=== PATIENT | male | born 1980 ===

== ENCOUNTER 2017-09-10 09:26 | Emergency (ER) | payer OTHER ==
[2017-09-10 09:50] VITALS: RESP 18; TEMP 99
[2017-09-10 11:07] LABS: BASO % 0.6 % (0.0-2.0); EOS # 0.1 K/uL (0.0-0.7); EOS % 1.5 % (0.0-4.0); HEMOGLOBIN 15.2 g/dL (12.0-18.0); MEAN CELL VOLUME 86.4 fL (80.0-94.0); MEAN CORPUSCULAR HEMOGLOBIN 29.2 pg (27.0-31.0); MEAN CORPUSCULAR HGB CONC 33.8 g/dL (33.0-37.0); MEAN PLATELET VOLUME 8.2 fL (7.2-11.7); MONO # 0.5 K/uL (0.0-0.8); MONO % 8.3 % (0.0-10.0); NEUT # 3.7 K/uL (1.8-7.0); NEUT % 57.6 % (50.0-75.0); NRBC % 0.1 % (0.0-2.0); RBC 5.21 Mil/uL (4.40-5.90); RED CELL DISTRIBUTION WIDTH 12.5 % (11.5-14.5); WHITE BLOOD COUNT 6.4 K/uL (4.8-10.8)
--- NOTE | 2017-09-10 11:16 | RAD ---
HISTORY: SOB COMPARISON: None available. TECHNIQUE: Chest, one view. FINDINGS: Examination limited by habitus and hypoinflation. LUNGS: No focal consolidation. Please note that chest x-ray has limited sensitivity for the detection of pulmonary masses. PLEURA: No significant pleural effusion identified. No definite pneumothorax . CARDIOVASCULAR: Heart size appears within normal limits. OSSEOUS STRUCTURES: No acute osseous abnormality identified. VISUALIZED UPPER ABDOMEN: Unremarkable. OTHER FINDINGS: None. IMPRESSION: No focal consolidation, significant pleural effusion, or definite pneumothorax identified.
--- NOTE | 2017-09-10 11:17 | C.PDOC ---
History Of Present Illness 37 y/o male with history of Gastritis and Hemorrhoids presents to ED with complaints of left sided abdominal pain for "couple of days" and constipation. Patient states yesterday he had bowel movement with bright red blood in stool after straining. Notes he has been applying hemorrhoid cream to area with no improvement. Patient admits to constipation and has been taking Nexium for gastritis. Patient denies fever, vomiting, urinary symptoms, testicular pain, chest pain, sob, dizziness or any other complaints at this time. Pt notes he has a h/o HTN and has not taken his medication in 3 days. Time Seen by Provider: 09/10/17 10:19 Chief Complaint (Nursing): Abdominal Pain History Per: Patient, Family (brother) History/Exam Limitations: no limitations Onset/Duration Of Symptoms: Days Current Symptoms Are (Timing): Still Present Past Medical History Reviewed: Historical Data, Nursing Documentation, Vital Signs Vital Signs: Last Vital Signs Temp 99.0 F 09/10/17 09:46 Pulse 74 09/10/17 14:36 Resp 18 09/10/17 14:36 BP 134/70 09/10/17 14:36 Pulse Ox 98 09/10/17 14:36 - Medical History PMH: Gastritis, HTN Surgical History: No Surg Hx Family History: States: No Known Family Hx - Social History Hx Alcohol Use: No Hx Substance Use: No - Immunization History Hx Tetanus Toxoid Vaccination: Yes Hx Influenza Vaccination: No Hx Pneumococcal Vaccination: No Review Of Systems Constitutional: Negative for: Fever, Chills Gastrointestinal: Positive for: Abdominal Pain, Constipation, Hematochezia, Rectal Pain. 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 COMPARISON: None available. TECHNIQUE: Chest , one view. FINDINGS: Examination limited by habitus and hypoinflation. LUNGS : No focal consolidation. Please note that chest x-ray has limited sensitivity for the detection of pulmonary masses. PLEURA: No significant pleural effusion identified. No definite pneumothorax . CARDIOVASCULAR: Heart size appears within normal limits. OSSEOUS STRUCTURES: No acute osseous abnormality identified. VISUALIZED UPPER ABDOMEN: Unremarkable. OTHER FINDINGS: None. IMPRESSION: No focal consolidation, significant pleural effusion, or definite pneumothorax identified. Progress Note: CT abd/Pelvis, Blood work, UA ordered. Toradol and Pepcid Administered. On re-evaluation, patient is resting comfortably, in no distress , abdomen is soft, no rebound or guarding, and is tolerating PO. Patient has no signs or symptoms to suggest surgical pathology. Patient was advised to follow up without fail with physician/clinic or to return to the ER for reevaluation in 1-2 days. Pt and brother were given results of CT scan and instructed clinic follow up. Case discussed with Dr Pavon who evlauated results and agreed upon plan and discharge. Disposition - Disposition Referrals: [facility] at [facility] [Outside] [facility] [Outside] Mckinley Jackson MD [Staff Provider] - Disposition: HOME/ ROUTINE Disposition Time: 14:22 Condition: STABLE Additional Instructions: Vaya a muñoz mdico o la clnica en 1-3 berry sin falta, para mas evaluacin. [place] los medicamentos vahid indicado. Volver a la ekaterina de emergencia en cualquier momento si los sntomas persisten o empeoran. Prescriptions: Polyethylene Glycol 3350 [Miralax] 17 gm PO DAILY #85 gm Instructions: Diverticulosis (ED), Diverticulosis Diet (ED) Forms: [employer] (Danish) Print Language: MONEGASQUE - Clinical Impression Clinical Impression: Diverticulosis - PA / SCIENTIFIC DIRECTOR / Resident Statement MD/DO has reviewed & agrees with the documentation as recorded. - Scribe Statement The provider has reviewed the documentation as recorded by the Scribe Helder Palafox All medical record entries made by the Dukeibzara were at my direction and personally dictated by me. I have reviewed the chart and agree that the record accurately reflects my personal performance of the history, physical exam, medical decision making, and the department course for this patient. I have also personally directed, reviewed, and agree with the discharge instructions and disposition.
[2017-09-10 11:35] LABS: ALB/GLOB RATIO 1.3 (1.0-2.1); ALBUMIN 4.4 g/dL (3.5-5.0); ALT/SGPT 35 U/L (21-72); AST/SGOT 32 U/L (17-59); BLOOD UREA NITROGEN 13 mg/dL (9-20); CALCIUM 9.4 mg/dl (8.6-10.4); GFR AFRICAN-AMERICAN > 60; GFR NON-AFRICAN AMERICAN > 60; LIPASE 348 U/L (23-300)
[2017-09-10 11:51] LABS: SQUAMOUS EPITHIAL < 1 /hpf (0-5); URINE BILIRUBIN NEGATIVE (NEGATIVE); URINE BLOOD NEGATIVE (NEGATIVE); URINE CLARITY Clear (Clear); URINE COLOR Yellow (YELLOW); URINE GLUCOSE (UA) NORMAL (Normal); URINE LEUKOCYTE ESTERASE NEG Leu/uL (Negative); URINE NITRATE NEGATIVE (NEGATIVE); URINE PROTEIN NEGATIVE (NEGATIVE); URINE UROBILINOGEN NORMAL mg/dL (0.2-1.0)
[2017-09-10] MEDS ORDERED: Iodixanol 320 mg/ml 150 ml Bottle IV ONE (13:06)
--- NOTE | 2017-09-10 14:09 | CT ---
PROCEDURE: CT Abdomen and Pelvis with contrast HISTORY: pain COMPARISON: None. TECHNIQUE: Contrast dose: 100 mL Visipaque 320 Radiation dose: Total exam DLP = 1315.62 mGy-cm. This CT exam was performed using one or more of the following dose reduction techniques: Automated exposure control, adjustment of the mA and/or kV according to patient size, and/or use of iterative reconstruction technique. FINDINGS: LOWER THORAX: Unremarkable. LIVER: Unremarkable. No gross lesion or ductal dilatation. GALLBLADDER AND BILE DUCTS: Unremarkable. PANCREAS: Unremarkable. No gross lesion or ductal dilatation. SPLEEN: Unremarkable. ADRENALS: Unremarkable. No mass. KIDNEYS AND URETERS: Nonspecific 10 mm right lower pole low-density renal mass. Nonspecific 1.5 cm mid left renal mass measuring -2 Hounsfield units, consistent with cyst. Nonspecific 1.3 cm mid left renal mass, measuring approximately 50 Hounsfield units. Recommend correlation with renal ultrasound examination on a nonemergent basis. No calculus or hydronephrosis. VASCULATURE: Unremarkable. No aortic aneurysm. BOWEL: Wolfe colonic diverticulosis without evidence of diverticulitis. No bowel obstruction. No other abnormal bowel loops. APPENDIX: Normal appendix. PERITONEUM: Unremarkable. No free fluid. No free air. LYMPH NODES: Unremarkable. No enlarged lymph nodes. BLADDER: Suboptimally distended. Grossly normal. REPRODUCTIVE: Normal prostate BONES: No acute fracture. OTHER FINDINGS: None. IMPRESSION: Wolfe colonic diverticulosis without evidence of diverticulitis. Bilateral small nonspecific rounded renal masses, likely cysts. Recommend correlation with renal ultrasound examination on a nonemergent basis. No additional abnormality.
[2017-09-10 14:37] VITALS: BP 134/70; PULSE 74
[2017-09-10 17:51] VITALS: O2SAT 100
== END 2017-09-10 14:37 | disposition home or self-care (01) ==
LOC: C.ER 09:26
DX: K57.90 Diverticulosis of intestine, part unspecified, without perforation or abscess without bleeding (principal)
CPT/HCPCS: 71045; 74177; 80053; 81001; 83690; 85025; 96374; 96375; 99284; G0328; J1885; Q9967

== ENCOUNTER 2018-05-22 19:06 | Emergency (ER) | payer OTHER ==
--- NOTE | 2018-05-22 20:34 | C.PDOC ---
Addendum entered and electronically signed by Ifrah Ba PA 05/23/18 18:50: Addendum Addendum: 05/23/18 18:43 ct leg from last reviewed with additional new findings; called podiatry resident Dr Gifford to review. Pod resident reviewed updated ct results with Dr Nunez, podiatry attending, and requested that pt be started on Clindamycin and cipro. attempted to call patient, no answer. called Glenn Devlin, pt's brother in law and explained situation. He will contact pt to let him know to get prescriptions and to follow up with podiatry on Friday as scheduled. Prescriptions called into [facility]. Podiatry resident notified that rx called in. Addendum entered and electronically signed by Amber Ware PA-C 05/23/18 03:28: Addendum Addendum: 05/23/18 03:26 Patient was evaluated by Podiatry resident, CT was ordered as per Podiatry request. Patient was splinted by Podiatry resident and was d/c home. Original Note: History Of Present Illness 37 y/o male presents to ED for evaluation of right foot swelling for the last 2- 3 days. He also complains of painful mass above the right ankle. Pt states he was seen by yarrow gatherer and was given referral for Xray on 05/25/18 but states pain was severe which prompted him to visit ED today. Otherwise, denies change in sensation, weakness, numbness, fever, chills, redness, or any other associated symptoms at this time. Time Seen by Provider: 05/22/18 19:26 Chief Complaint (Nursing): Lower Extremity Problem/Injury History Per: Patient History/Exam Limitations: no limitations Onset/Duration Of Symptoms: Days Current Symptoms Are (Timing): Still Present Recent travel outside of the [place]: No Additional History Per: Patient Past Medical History Reviewed: Historical Data, Nursing Documentation, Vital Signs Vital Signs: Last Vital Signs Temp 98.8 F 05/22/18 19:19 Pulse 105 H 05/22/18 19:19 Resp 18 05/22/18 19:19 BP 142/78 05/22/18 19:19 Pulse Ox 97 05/22/18 19:19 - Medical History PMH: Gastritis, HTN Denies: Chronic Kidney Disease Family History: States: Unknown Family Hx - Social History Hx Alcohol Use: No Hx Substance Use: No - Immunization History Hx Tetanus Toxoid Vaccination: Yes Hx Influenza Vaccination: No Hx Pneumococcal Vaccination: No Review Of Systems Except As Marked, All Systems Reviewed And Found Negative. Constitutional: Negative for: Fever, Chills Musculoskeletal: Positive for: Foot Pain Skin: Negative for: Rash, Lesions, Bruising Neurological: Negative for: Weakness, Numbness Physical Exam - Physical Exam Appears: Non-toxic, No Acute Distress Skin: Warm, Dry, Other (tender mass above the right lateral malleolus) Head: Atraumatic, Normacephalic Eye(s): bilateral: Normal Inspection Extremity: Normal ROM (FROM of right foot), Tenderness (tenderness to dorsum aspect of right foot), No Calf Tenderness, Capillary Refill (less than 2 seconds), No Deformity, Swelling (swelling to dorsum of right foot) Pulses: Left Dorsalis Pedis: Normal, Right Dorsalis Pedis: Normal Neurological/Psych: Oriented x3, Normal Speech, Normal Motor, Normal Sensation ED Course And Treatment - Laboratory Results Result Diagrams: 05/22/18 21:49 05/22/18 21:49 O2 Sat by Pulse Oximetry: 97 (RA) Pulse Ox Interpretation: Normal - Other Rad Right foot/ankle Xray X-Ray: Interpreted by Me, Viewed By Me Interpretation: Soft tissue swelling. No acute fracture or dislocation. No bony lesions. - CT Scan/US CT lower leg Other Rad Studies (CT/US): Read By Radiologist, Radiology Report Reviewed CT/US Interpretation: Name:EVY DEXTER Exam Date:May 22, 2018 10:26:08 PM EDT. Modality Type:CT. Description:CT - LOWER LEG. Gender:M Laterality:Not applicable. :78 Referring Physician:Amber Ware). CT of the left lower leg with contrast. Clinical statement: possible abscess. Technique: Multiple axial CT images were obtained with 5 mm cuts through the left lower leg after ministration of non- ionic intravenous contrast. Coronal and sagittal reconstructions were also obtained. DLP 605.29. No comparison is available. Findings: The osseous structures do not demonstrate any fractures or dislocations. The superficial soft tissues are unremarkable. The joint spaces are well-maintained.. The vascular structures demonstrate normal caliber and contour. No abnormal enhancing masses are seen. Impression: 1. No enhancing mass or abscess identified. 2. No acute osseous abnormality. . Electronically signed on May 22, 2018 11:24:36 PM EDT by: Martin Stark M.D., MARGE Certified By ABR & CBCCT. Fellowship Trained MRI and CT Specialist. Progress Note: Right foot/ankle/tibia fibula Xray ordered and reviewed. Podiatry resident will evaluate patient at bedside. Disposition - Disposition Referrals: [facility] at [facility] [Outside] Disposition: HOME/ ROUTINE Disposition Time: 23:41 Condition: STABLE Additional Instructions: Follow up in Podiatry Clinic on 05/25/18. Return to ED if feel worse. Prescriptions: Ibuprofen [Motrin Tab] 600 mg PO Q8 #30 tab oxyCODONE/Acetaminophen [Percocet 5/325 mg Tab] 1 tab PO QID PRN #15 tab PRN Reason: Pain Instructions: Muscle and Bone Pain (DC) Forms: [employer] (Italian) Print Language: INDIAN - Clinical Impression Clinical Impression: Leg pain - PA / DECK CADET / Resident Statement MD/DO has reviewed & agrees with the documentation as recorded. - Scribe Statement The provider has reviewed the documentation as recorded by the Dukeibe Navya Canales All medical record entries made by the Luz Maria were at my direction and personally dictated by me. I have reviewed the chart and agree that the record accurately reflects my personal performance of the history, physical exam, medical decision making, and the department course for this patient. I have also personally directed, reviewed, and agree with the discharge instructions and disposition.
[2018-05-22] MEDS ORDERED: Oxycodone/Acetaminophen 5/325 mg Tab PO STA (21:35)
[2018-05-22] MEDS ORDERED: Sodium Chloride 0.9% 1,000 ML IV STA (21:41)
[2018-05-22] MEDS ORDERED: Oxycodone/Acetaminophen 5/325 mg Tab ONE (21:43)
--- NOTE | 2018-05-22 21:48 | CP.PCM.CON ---
Addendum entered and electronically signed by King Florian DPM 05/23/18 18:17: I was contacted by [facility] ED today informing me that more detailed reading of the right LE CT was done overnight. R LE CT with contrast New report reviewed; - Reticulation and edema present within the anterior lateral soft tissues at the level of the tibia and fibula. And also at the level of posterior inferior hindfoot. Which might represents acu te inflammatory or infectious process. - Mild fatty atrophy of the medial head of gastrocnemious and moderate fattly atrphy of the Soleus muscle belly. - Small supratalar joint effusion. - Some productive or osseous changes at the bases of the 3rd and 4th metatarsal bones and also lateral cuniform. It might represents inflammatory or infectious process. According to the new reading. Dr Nunez was contacted and discussed changes in the original plan. Dr. Nunez recommends Covering the patient with Clindamycin 600 mg tab and Ciprofloxacin 500 mg tablets for 10 days. ED was contacted and informed with the new plan. ED will contact the patient to provide him with Abx prescription. Patient will be provided with MRI script upon following up in the podiatry clinic this coming Friday (05/25). Patient will follow up in the podiatry clinic with Dr. Nunez. Addendum entered and electronically signed by King Florian DPM 05/22/18 23:52: D-Dimer < 200 Original Note: History of Present Illness - History of Present Illness History of Present Illness: Right LE focused exam: 37 y/o M patient with PMH of HTN seen and evaluated in the ED for pain and swelling in his right LE. patient states that he is having sever pain in his right foot and ankle started 3 days ago. He states that the pain is 10/10 and he triem motrin for the pain but it didn't help him. Patient states that he was at the podiatry clinic last friday where he was seen by Enrique Haile and provided with x-ray script to do it before the next visit. Patient states that 3 months ago he had fluid collection around his right knee and LE and he had to come to the ED where the fluid was tapped. Patient states that 3 months ago he started to note a mass in his right LE. He states that the mass was growing. He states that the mass is painful. He denies any other pedal complaint at this time. He denies any recent F/N/V/C or SOB. PMH: HTN PSH: None Allergies: NKDA. Social Hx: Denies smoking, EtOH use or illicit drug use. Review of Systems - Review of Systems Review of Systems: As per HPI Past Patient History - Infectious Disease Hx of Infectious Diseases: None - Past Social History Smoking Status: Never Smoked - CARDIAC Hx Hypertension: Yes - PULMONARY Hx Respiratory Disorders: No - NEUROLOGICAL Hx Neurological Disorder: No - HEENT Hx HEENT Problems: No - RENAL Hx Chronic Kidney Disease: No - ENDOCRINE/METABOLIC Hx Endocrine Disorders: No - HEMATOLOGICAL/ONCOLOGICAL Hx Blood Disorders: No - INTEGUMENTARY Hx Dermatological Problems: No - MUSCULOSKELETAL/RHEUMATOLOGICAL Hx Musculoskeletal Disorders: No - GASTROINTESTINAL Hx Gastritis: Yes - GENITOURINARY/GYNECOLOGICAL Hx Genitourinary Disorders: No - PSYCHIATRIC Hx Substance Use: No - SURGICAL HISTORY Hx Surgeries: No - ANESTHESIA Hx Anesthesia: No Meds Home Medications: Home Medication List Medication Instructions Recorded Confirmed Type Ibuprofen [Motrin Tab] 600 mg PO Q8 #30 tab 05/22/18 Rx oxyCODONE/Acetaminophen [Percocet 1 tab PO QID PRN #15 tab 05/22/18 Rx 5/325 mg Tab] Allergies/Adverse Reactions: Allergies Allergy/AdvReac Type Severity Reaction Status Date / Time No Known Allergies Allergy Verified 09/10/17 09:50 Physical Exam - Constitutional Appears: Well, Non-toxic, No Acute Distress - Head Exam Head Exam: ATRAUMATIC, NORMOCEPHALIC - Extremities Exam Additional comments: Right LE focused exam: Vasc: DP/PT 2/4, Cap refill < 3 sec to all digits. Temp gradient warm to cool from proximal to distal. sever non pitting edema extending from the foot up to the tibial tuberosity. Neuro: Gross and protective sensations are intact. Derm: No open lesions, No clinical signs of active infection. Soft tissue mass noted on the lower lateral aspect of the left leg. the mass is oval in shap with soft consistency and smooth edges. MSK: Pain on palpating the mass. Pain on palpating the dorsum of the foot. Pain with ankle ROM. Muscle power intact 5/5 in all groups. - Neurological Exam Neurological exam: Alert, Oriented x3 - Psychiatric Exam Psychiatric exam: Normal Affect, Normal Mood Results - Vital Signs Recent Vital Signs: Last Vital Signs Temp 98.8 F 05/22/18 19:19 Pulse 105 H 05/22/18 19:19 Resp 18 05/22/18 19:19 BP 142/78 05/22/18 19:19 Pulse Ox 97 05/22/18 20:55 - Labs Result Diagrams: 05/22/18 21:49 05/22/18 21:49 Assessment & Plan - Assessment and Plan (Free Text) Assessment: 37 y/o M patient seen and evaluated in the ED for pain and swelling n his right LE Plan: Patient seen and evaluated in the ED Plan discussed in details with attending Dr. Nunez. Labs, Charts and vitals reviewed; Afebrile. WBCs 11.1 X-ray Right foot reviewed; Soft tissue swelling, no osseous anomalies X-ray Right ankle reviewed; Soft tissue swelling, no osseous anomalies X-ray Right Tib-fibula reviewed; Soft tissue swelling, Soft tissue mass right lateral lower leg, no osseous anomalies CT with contrast RLE reveals No mass or abscess or osseous abnormality Pain medication ordered for the patient by the ED doctor. Patient instructed to use the pain meds prescribed to him by the ED doctor in case of pain. Discussed with the patient that he probably will need an MRI to determine the nature of this mass. Patient will be provided with a script of RLE MRI when he comes to the clinic. 2 layers modified Gonsalves compression applied to the patient RLE. Patient educated RICE protocol Patient instructed to maintain NWB to his RLE and to ambulate using crutches. Patient expressed verbal understanding. Patient will follow up in the podiatry clinic with Dr. Nunez. - Date & Time Date: 05/22/18 Time: 21:55
[2018-05-22 21:52] LABS: BASO # 0.1 K/uL (0.0-0.2); BASO % 0.6 % (0.0-2.0); EOS # 0.1 K/uL (0.0-0.7); EOS % 0.9 % (0.0-4.0); HEMOGLOBIN 13.5 g/dL (12.0-18.0); LYMPH % 17.7 % (20.0-40.0); MEAN CORPUSCULAR HEMOGLOBIN 28.3 pg (27.0-31.0); MEAN CORPUSCULAR HGB CONC 33.1 g/dL (33.0-37.0); MEAN PLATELET VOLUME 8.2 fL (7.2-11.7); MONO # 0.8 K/uL (0.0-0.8); MONO % 7.4 % (0.0-10.0); NEUT # 8.1 K/uL (1.8-7.0); NEUT % 73.4 % (50.0-75.0); NRBC % 0.1 % (0.0-2.0); RBC 4.76 Mil/uL (4.40-5.90); RED CELL DISTRIBUTION WIDTH 12.3 % (11.5-14.5)
[2018-05-22] MEDS ORDERED: Iodixanol 320 MG/ML 100 ML BOTTLE IV ONE (21:52)
[2018-05-22 21:59] LABS: MEAN CELL VOLUME 85.6 fL (80.0-94.0); WHITE BLOOD COUNT 11.1 K/uL (4.8-10.8)
[2018-05-22] MEDS ORDERED: Sodium Chloride 0.9% 1,000 ML ONE (22:03)
[2018-05-22 22:06] LABS: ALB/GLOB RATIO 1.4 (1.0-2.1); ALBUMIN 4.4 g/dL (3.5-5.0); ALT/SGPT 29 U/L (21-72); AST/SGOT 20 U/L (17-59); BLOOD UREA NITROGEN 17 mg/dL (9-20); CALCIUM 9.6 mg/dl (8.6-10.4); GFR NON-AFRICAN AMERICAN > 60
[2018-05-22 22:09] VITALS: BP 123/73; PULSE 88; RESP 20; TEMP 99.4
[2018-05-22 22:31] LABS: INR 1.1; PARTIAL THROMBOPLASTIN TIME 33 SECONDS (21-34); PROTHROMBIN TIME 12.1 SECONDS (9.7-12.2)
[2018-05-22 22:42] LABS: D DIMER < 200 ng/mlDDU (0-243)
[2018-05-22 23:26] VITALS: O2SAT 97
--- NOTE | 2018-05-23 07:47 | RAD ---
Right tibia and fibula HISTORY: Pain and swelling. COMPARISON: None available. FINDINGS: Prominent soft tissue calcifications within the anterior soft tissues. Reticulation and edema within the soft tissues. No evidence for acute displaced fracture or dislocation. IMPRESSION: Reticulation and edema within the soft tissues. If pain persists, consider correlation with MRI.
--- NOTE | 2018-05-23 11:58 | CT ---
CT right lower extremity HISTORY: Soft tissue mass. COMPARISON: None available. TECHNIQUE: Multiple contiguous axial images were performed through the right lower extremity including the femur, tibia and fibula, and foot without the use of intravenous contrast. Subsequently, sagittal and coronal reformatted images were obtained. This CT exam was performed using one or more of the following dose reduction techniques: Automated exposure control, adjustment of the mA and/or kV according to patient size, and/or use of iterative reconstruction technique. Findings: Reticulation and edema seen within the anterior lateral soft tissues at the level of the tibia and fibula, nonspecific possibly representing some acute infectious and or inflammatory changes. Additional reticulation and edema within the soft tissues at the level the posterior inferior hindfoot also suggestive for possible acute infectious and or inflammatory changes. Mild fatty atrophy of the medial head of the gastrocnemius muscle belly. Moderate fatty atrophy of the soleus muscle belly. Clinical correlation. Evaluation of the osseous structures demonstrates some productive change and or subchondral cystic change at the bases of the 3rd and 4th metatarsal bones as well as the corresponding lateral cuneiform bone. This is of uncertain clinical etiology and may be the sequelae of osteochondral/degenerative change. Additional etiologies such as acute inflammatory and or infectious changes at this level cannot be excluded. Clinical correlation. Hallux valgus deformity. Bipartite medial sesamoid bone. Calcifications noted within the soft tissues at the level the anterior tibia. Small suprapatellar joint effusion. Plantar and dorsal calcaneal spurring. Impression: 1. Reticulation and edema seen within the anterior lateral soft tissues at the level of the tibia and fibula, nonspecific possibly representing some acute infectious and or inflammatory changes. Additional reticulation and edema within the soft tissues at the level the posterior inferior hindfoot also suggestive for possible acute infectious and or inflammatory changes. 2. Mild fatty atrophy of the medial head of the gastrocnemius muscle belly. Moderate fatty atrophy of the soleus muscle belly. Clinical correlation. 3. Small suprapatellar joint effusion. 4. Calcifications noted within the soft tissues at the level the anterior tibia. 5. Evaluation of the osseous structures demonstrates some productive change and or subchondral cystic change at the bases of the 3rd and 4th metatarsal bones as well as the corresponding lateral cuneiform bone. This is of uncertain clinical etiology and may be the sequelae of osteochondral/degenerative change. Additional etiologies such as acute inflammatory and or infectious changes at this level cannot be excluded. Clinical correlation. 6. Hallux valgus deformity. Bipartite medial sesamoid bone. 7. Plantar and dorsal calcaneal spurring. A preliminary report was generated at 11:24 p.m. on 05/22/[address] Martin Stark from [facility].
--- NOTE | 2018-05-23 13:47 | RAD ---
Date of service: 05/22/2018 PROCEDURE: Right Foot Radiographs. Three views HISTORY: pain/swelling COMPARISON: None. FINDINGS: BONES: Bony productive change at the bases of the 3rd and 4th metatarsal bones as well as at the distal pole of the lateral cuneiform bone with some subchondral cyst formation. This is of uncertain clinical etiology and may represent the sequelae of degenerative changes; however, acute infectious and or inflammatory changes cannot be excluded. Clinical correlation. JOINTS: Mild hallux valgus deformity. Bipartite medial sesamoid bone SOFT TISSUES: Diffuse soft tissue swelling. OTHER FINDINGS: Plantar and dorsal calcaneal spurring. Degenerative changes with productive change at the dorsal aspect of the midfoot. IMPRESSION: 1. Bony productive change at the bases of the 3rd and 4th metatarsal bones as well as at the distal pole of the lateral cuneiform bone with some subchondral cyst formation. This is of uncertain clinical etiology and may represent the sequelae of degenerative changes; however, acute infectious and or inflammatory changes cannot be excluded. Clinical correlation. 2. Mild hallux valgus deformity. Bipartite medial sesamoid bone. 3. Diffuse soft tissue swelling. 4. Plantar and dorsal calcaneal spurring. Degenerative changes with productive change at the dorsal aspect of the midfoot. If pain persists, consider correlation with MRI.
--- NOTE | 2018-05-23 17:12 | RAD ---
Right ankle three views HISTORY: Pain and swelling. COMPARISON: None available. FINDINGS: Please see separate report for evaluation of the CT of the right ankle. Soft tissue swelling throughout the visualized subcutaneous soft tissues. Soft tissue calcifications anterior to the tibia. Plantar and dorsal calcaneal spurring. Productive change and or degenerative changes at the level of the bases of the 3rd and 4th metatarsal bones, nonspecific. This may be the sequelae of degenerative change however underlying acute inflammatory and or infectious changes cannot be excluded. Clinical correlation. Ankle mortise is maintained. Talar dome is intact. Productive change at the dorsal aspect of the midfoot. IMPRESSION: Please see separate report for evaluation of the CT of the right ankle. Soft tissue swelling throughout the visualized subcutaneous soft tissues. Soft tissue calcifications anterior to the tibia. Plantar and dorsal calcaneal spurring. Productive change and or degenerative changes at the level of the bases of the 3rd and 4th metatarsal bones, nonspecific. This may be the sequelae of degenerative change however underlying acute inflammatory and or infectious changes cannot be excluded. Clinical correlation. Productive change at the dorsal aspect of the midfoot. If pain persists, consider MRI.
== END 2018-05-23 00:14 | disposition home or self-care (01) ==
LOC: C.ER 19:06
DX: M79.604 Pain in right leg (principal); I10 Essential (primary) hypertension
CPT/HCPCS: 73590; 73610; 73630; 73701; 80053; 85025; 85378; 85610; 85730; 96360; 99284; J7030; Q9967

== ENCOUNTER 2018-06-05 07:46 | Day surgery (SDC) | payer OTHER ==
[2018-06-02 09:46] VITALS: BMI 47.4
[~2018-06-05 07:46] MED LIST: Bupivacaine 0.25% 20 ML INJ IJ ONE; Bupivacaine HCl 0.5% PF (30 ml) Inj ONE; Lidocaine 2% MPF (5 ml) Inj ONE; ceFAZolin 1 gm FROZEN Premix 0 GM/0 ML ML IVPB ONE
[2018-06-05] MEDS ORDERED: Propofol 10 mg/ml Inj (20 ML) ONE ×2 (09:32→09:54)
[2018-06-05] MEDS ORDERED: Midazolam 2 MG/2 ML VIAL ONE (09:32)
[2018-06-05] MEDS ORDERED: Lidocaine Hydrochloride 5 ML INJ ONE (09:37)
[2018-06-05] MEDS ORDERED: Bupivacaine 0.25% 20 ML INJ IJ ONE (10:08)
[2018-06-05] MEDS ORDERED: Morphine 4 MG/ML VIAL ONE (10:12)
[2018-06-05] MEDS ORDERED: HYDROmorphone 0.5 mg/0.5 ml ISec IVP PRN (10:19)
--- NOTE | 2018-06-05 10:19 | PCM.SURG1 ---
Surgeon's Initial Post Op Note - Surgeon's Notes Surgeon: Dr. Enrique MCNULTYM [employer] Specialist: Dr. Israel MCCLURE PGY-2 Type of Anesthesia: IV Sedation, Local Anesthesia Administered By: Dr. 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 2) 3rd metatarsal base bone,right foot- wound culture. 3) 4th metatarsal bsae bone, right foot- pathology. 4) 4th metatarsal base bone, right foot- wound culture Estimated Blood Loss: EBL {In ML}: 1 Blood Products Given: N/A Drains Used: No Drains Post-Op Condition: Good Date of Surgery/Procedure: 06/05/18 Time of Surgery/Procedure: 09:20
[2018-06-05] MEDS ORDERED: Oxycodone/Acetaminophen 5/325 mg Tab PO PRN ×2 (10:21)
[2018-06-05 11:40] VITALS: RESP 16; O2SAT 100
[2018-06-05 12:53] VITALS: BP 114/63; PULSE 90; TEMP 16
[2018-06-06] MEDS ORDERED: Pantoprazole 40 mg EC Tab PO SCH (10:00)
--- NOTE | 2018-06-07 19:22 | PCM.OP ---
Operative Report - Operative Report Date of Surgery/Procedure: 06/05/18 Time of Surgery/Procedure: 09:15 Surgeon: Dr. Cortney Nunez DPM Travel Attendants: Dr. Amish Wood DPM PGY-2 Anesthesia/Sedation: Dr. Reinier MD IV sedation with local anesthesia Pre-Operative Diagnosis: 1. right foot 3rd metatarsal base osteomyelitis. 2. right foot 4th base metatarsal osteomyelitis Post-Operative Diagnosis: same Indication for Surgery: Indications: The patient is a 37 year-old male with the above diagnoses. Patient has pain and swelling to the right lower extremity for about 1 month. Patient denies any trauma or injuries to the right lower extremity and foot. Patient recent underwent MRI for right lower extremity and MRI reports shows possible osteomyelitis of 3rd and 4th metatarsal base. The patient signed the consent after careful explanation of risks, benefits, complication and alternatives for surgical procedure. No guarantees were given nor implied. NPO status was confirmed prior to taking patient to the OR. Operative Findings: see dictation below Procedure/Operation Description: Preparation: The patient was brought in to the operating room and placed on the operating room table in a supine position. Timeout was performed for identification of the correct patient and procedure. After IV sedation is administered, local anesthesia of 20 cc of 1:1 of 1% lidocaine plain and .5% Marcaine plain in V block fashion to the right foot. Right lower extremity was then prepped and draped in normal sterile manner and the procedure began. Procedure 1: Bone biopsy 3rd metatarsal base, right footAttention was directed to the lateral right foot at the location of the 3rd metatarsal base. Under fluoroscopy guidance, location of the 3rd metatarsal base was identified with a freer and marked using a skin marker outlining the entire 3rd metatarsal base. Using a #15 blade, a stab incision was made on the dorsum aspect of the 3rd metatarsal base. Next the Jamshidi needle was placed through the incision, and using firm pressure, the needle was advance into the 3rd metatarsal base while rotating the needle the needle 45 degrees in an alternating clockwise/counterclockwise. Once the entrance into the marrow cavity, the stylet was rotated 90 degrees counter-clockwise, and the stylet was pulled out of the handle. The bone biopsy of the 3rd metatarsal base was obtain and was passed off the operative field and sent for wound culture. Next Using a #15 blade, a stab incision was made on the dorsum aspect of the 3rd metatarsal base more proximally. Next the Jamshidi needle was placed through the incision, and using firm pressure, the needle was advance into the 3rd metatarsal base while rotating the needle the needle 45 degrees in an alternating clockwise/counterclockwise. Once the entrance into the marrow cavity, the stylet was rotated 90 degrees counter-clockwise, and the stylet was pulled out of the handle. The bone biopsy of the 3rd metatarsal base was obtain and was passed off the operative field and sent to pathology.Procedure 2: Bone biopsy 4th metatarsal base, right footAttention was directed to the lateral right foot at the location of the 4th metatarsal base. Under fluoroscopy guidance, location of the 4th metatarsal base was identified with a freer and marked using a skin marker outlining the entire 4th metatarsal base. Using a #15 blade, a stab incision was made on the dorsum aspect of the 4thmetatarsal base. Next the Jamshidi needle was placed through the incision, and using firm pressure, the needle was advance into the 4th metatarsal base while rotating the needle the needle 45 degrees in an alternating clockwise/counterclockwise. Once the entrance into the marrow cavity, the stylet was rotated 90 degrees counter- clockwise, and the stylet was pulled out of the handle. The bone biopsy of the 4th metatarsal base was obtain and was passed off the operative field and sent for wound culture. Next Using a #15 blade, a stab incision was made on the dorsum aspect of the 4th metatarsal base more proximally. Next the Jamshidi needle was placed through the incision, and using firm pressure, the needle was advance into the 4th metatarsal base while rotating the needle the needle 45 degrees in an alternating clockwise/counterclockwise. Once the entrance into the marrow cavity, the stylet was rotated 90 degrees counter-clockwise, and the stylet was pulled out of the handle. The bone biopsy of the 4th metatarsal base was obtain and was passed off the operative field and sent to pathology.The surgical incisions were cleansed with copious amounts of saline solution. Skin was closed and reapproximated using #3-0 monocryl. Surgical incisions were then dressed with adaptic, dsd, kerlix and TITO. Estimated Blood Loss: 1 Complications: none Discharge & Condition: Postoperative Condition: The patient tolerated the anesthesia and procedure well and was escorted to the recovery room with vital signs stable and neurovascular status intact to right lower extremity. Patient will follow up with Dr. Nunez in office within 1 week.
== END 2018-06-05 12:43 | disposition home or self-care (01) ==
LOC: C.SDS 07:46
PROVIDERS: ATTEND Podiatrist Foot & Ankle Surgery
DX: M86.8X7 Other osteomyelitis, ankle and foot (principal)
CPT/HCPCS: 20240; 87070; 88305; 97116; 97161; G8978; G8979; G8980; J0131; J1885; J2250; J2270; J2704; J3010

== ENCOUNTER 2018-06-08 13:09 | Emergency (ER) | payer OTHER ==
[2018-06-08 13:09] VITALS: BMI 47.4
[2018-06-08 13:49] VITALS: BP 120/77; PULSE 109; RESP 20; TEMP 100.5; O2SAT 96
--- NOTE | 2018-06-08 14:18 | C.PDOC ---
History Of Present Illness 37 year old male presents to the ED after being referred by Dr. Nunez in clinic for knee evaluation. Patient is c/o recurring right knee effusion for 3 days. Patient reports having similar episode on 04/25 s/p knee tap. Patient is s/p evaluation for right foot osteomyelitis and antibiotics. Family states knee swelling slowly grew back. Denies fever, redness or trauma. REFERRED BY DR NUNEZ IN CLINIC FOR KNEE EVALUATION. CO RECUR R KNEE EFFUSION X 3 DAYS. SIM EPISODE 04/25 SP KNEE TAP. S/P EVAL FOR R FOOT OSTEOMYELITIS, ABX. FA CASIE STATES KNEE SWELL SLOWLY GREW BACK. NO FEVER, REDNESS, TRAUMA EXAM NAD NONTOXIC OBESE EXT R KNEE +MOD SWELL MIN WARMTH. AROM WO DIFF. NONTEND. SKIN NO ERYTHEMA, LYMPHANGITIS REMAINDER NEG Time Seen by Provider: 06/08/18 14:03 Chief Complaint (Nursing): Lower Extremity Problem/Injury History Per: Patient History/Exam Limitations: no limitations Onset/Duration Of Symptoms: Days (3) Current Symptoms Are (Timing): Still Present Additional History Per: Patient Past Medical History Reviewed: Historical Data, Nursing Documentation, Vital Signs Vital Signs: Last Vital Signs Temp 100.5 F H 06/08/18 13:43 Pulse 109 H 06/08/18 13:43 Resp 20 06/08/18 13:43 BP 120/77 06/08/18 13:43 Pulse Ox 96 06/08/18 13:43 - Medical History PMH: Gastritis, HTN, Peripheral Edema (RIGHT FOOT) Denies: Chronic Kidney Disease Surgical History: No Surg Hx Family History: States: Unknown Family Hx - Social History Hx Alcohol Use: No Hx Substance Use: No - Immunization History Hx Tetanus Toxoid Vaccination: Yes Hx Influenza Vaccination: No Hx Pneumococcal Vaccination: No Review Of Systems Constitutional: Negative for: Fever, Chills Musculoskeletal: Positive for: Other (right knee evaluation ) Physical Exam - Physical Exam Appears: Non-toxic, No Acute Distress, Other (obese) Skin: Normal Color, Warm, Dry, No Other (erythema or lymphangitis ) Head: Atraumatic, Normacephalic Eye(s): bilateral: Normal Inspection Oral Mucosa: Moist Neck: Supple Chest: Symmetrical, No Deformity, No Tenderness Cardiovascular: Rhythm Regular, No Murmur Respiratory: Normal Breath Sounds, No Rales, No Rhonchi, No Wheezing Extremity: Normal ROM, No Tenderness, Capillary Refill (less than 2 seconds ), Other (right knee: moderate swelling and minimal warmth) Pulses: Left Dorsalis Pedis: Normal, Right Dorsalis Pedis: Normal Neurological/Psych: Oriented x3, Normal Speech, Normal Cognition ED Course And Treatment O2 Sat by Pulse Oximetry: 96 (on RA) Pulse Ox Interpretation: Normal Progress - Re-Evaluation Re-evaluation Note: 06/08/18 14:16 D.W VERONICA STATES PT INITIALLY W ELEVATED HR AND REFERRED TO ER. NEG BONE BIOPSY MRI REPORT REVIEWED, +EXTENSIVE LIGAMENT AND MENISCUS ABN. PT AND FAMILY ADVISED AND AGREE W PLAN, PREFER FU ORTHO IN CLINIC AND DO NOT WANT ADDL ER TESTING. 06/08/18 14:42 KNEE CX 04/25 NEG - Data Reviewed Data Reviewed: Old records Disposition Counseled Patient/Family Regarding: Diagnosis, Need For Followup - Disposition Referrals: [facility] [Outside] [facility] [Outside] Disposition: HOME/ ROUTINE Disposition Time: 14:37 Condition: GOOD Instructions: Internal Derangement of the Knee (DC), Meniscal Tear (DC) Forms: [employer] (Guamanian) Print Language: ALGERIAN - Clinical Impression Clinical Impression: Joint effusion of knee - Scribe Statement The provider has reviewed the documentation as recorded by the Scribe (Jaja Canales) Provider Attestation: All medical record entries made by the Scribe were at my direction and personally dictated by me. I have reviewed the chart and agree that the record accurately reflects my personal performance of the history, physical exam, medical decision making, and the department course for this patient. I have also personally directed, reviewed, and agree with the discharge instructions and disposition.
== END 2018-06-08 14:54 | disposition home or self-care (01) ==
LOC: C.ER 13:09
DX: M25.461 Effusion, right knee (principal)